=== PATIENT | male | born 1960 | race Caucasian/White ===

== ENCOUNTER 2020-01-23 11:58 | Inpatient (IN) | payer MEDICAID, OTHER ==
[~2020-01-23] VITALS: Ht 167.6 cm; Wt 54.9 kg
[2020-01-23 13:08] LABS: HEMATOCRIT. 46.1 % (42.0-52.0); HEMOGLOBIN. 15.8 g/dL (14.0-18.0); MEAN CORPUSCULAR HEMOGLOBIN 32.1 pg (28.0-32.0); MEAN CORPUSCULAR VOLUME 94.1 fL (80.0-94.0); PLATELET 176 x1000/uL (130-400); RED CELL DISTRIBUTION WIDTH 13.8 % (11.6-14.6)
[2020-01-23] MEDS ORDERED: AZITHROMYCIN 500 MG TABLET PO ONE (13:15)
[2020-01-23] MEDS ORDERED: CEFTRIAXONE 1 G PREMIX 50 ML IV ONE (13:15)
[2020-01-23 13:18] LABS: CHLORIDE 108 mEq/L (98-107)
[2020-01-23 13:22] LABS: PLATELET ESTIMATE NORMAL
[2020-01-23 14:19] LABS: CLARITY URINE CLEAR (CLEAR); COLOR URINE YELLOW (YELLOW); KETONES URINE NEGATIVE (NEGATIVE); LEUKOCYTE ESTERASE URINE NEGATIVE (NEGATIVE); NITRITE URINE NEGATIVE (NEGATIVE); OCCULT BLOOD URINE 1+ (NEGATIVE); PROTEIN URINE 2+ (NEGATIVE)
[2020-01-23] MEDS ORDERED: IOHEXOL-350 100 ML BOTTLE ONE (19:25)
[2020-01-23] MEDS ORDERED: AZITHROMYCIN 500 MG in DEXT 5% WATER 250 ML IV SCH (23:00)
[2020-01-23] MEDS ORDERED: ACETAMINOPHEN 325MG TABLET PO PRN (23:00)
[2020-01-23] MEDS ORDERED: HYDROCODONE/ACETAMINOPHEN 5/325MG TABLET PO PRN (23:00)
[2020-01-23] MEDS ORDERED: CEFTRIAXONE 1 G PREMIX 50 ML IV SCH (23:00)
[2020-01-23] MEDS ORDERED: GUAIFENESIN 200MG/10ML SUGAR FREE UDC PO PRN (23:00)
[2020-01-23] MEDS ORDERED: ONDANSETRON HCL 4MG/2ML INJ IV PRN (23:00)
[2020-01-23] MEDS ORDERED: MORPHINE SULFATE 2 MG/ML CPJ (NOT FOR IM USE) IV PRN (23:00)
[2020-01-23] MEDS ORDERED: IPRATROPIUM/ALBUTEROL 0.5-3(2.5)MG/3ML NEB NEB PRN (23:00)
[2020-01-23] MEDS ORDERED: LORAZEPAM 2MG/ML CPJ IV PRN (23:00)
[2020-01-24] VITALS: BP 143/72
[2020-01-24 00:55] VITALS: BP 143/72
[2020-01-24 04:00] VITALS: BP 137/79
[2020-01-24] MEDS ORDERED: MVI, ADULT NO.1 10 ML, FOLIC ACID 1 MG, THIAMINE HCL 100 MG in SODIUM CHLORIDE 0.9% 1,0... IV NR ×4 (04:00)
[2020-01-24] MEDS ORDERED: METHYLPREDNISOLONE SOD SUCC 125 MG/2 ML VIAL IV SCH (06:00)
[2020-01-24 07:28] LABS: BASOPHILS % 0.2 % (0.0-2.0); CHLORIDE 106 mEq/L (98-107); EOSINOPHILS % 0.4 % (0.0-5.0); HEMATOCRIT. 44.6 % (42.0-52.0); HEMOGLOBIN. 15.1 g/dL (14.0-18.0); LYMPHOCYTES % 10.1 % (20.0-50.0); MEAN CORPUSCULAR HEMOGLOBIN 32.2 pg (28.0-32.0); MEAN CORPUSCULAR VOLUME 95.1 fL (80.0-94.0); MEAN PLATELET VOLUME 8.2 fl (7.4-10.4); MONOCYTES % 5.6 % (2.0-8.0); NEUTROPHILS % 83.7 % (40.0-76.0); PLATELET 141 x1000/uL (130-400); RED BLOOD CELL COUNT 4.69 mill/uL (4.7-6.1); RED CELL DISTRIBUTION WIDTH 13.8 % (11.6-14.6)
[2020-01-24 07:54] LABS: CREATINE KINASE MB FRACTION 19.1 ng/mL (0.5-3.6)
[2020-01-24 08:00] VITALS: BP 143/65
[2020-01-24 08:05] LABS: CREATINE KINASE 3565 IU/L (39-308)
[2020-01-24] MEDS ORDERED: FOLIC ACID 1MG TABLET PO SCH (09:00)
[2020-01-24] MEDS: ENOXAPARIN 40MG/0.4ML SYR SUBCUT SCH ×2 (09:00→09:58)
[2020-01-24] MEDS ORDERED: ALBUTEROL 6.7GM HFA INHALER ORI PRN (09:45)
[2020-01-24 10:44] LABS: CANNABINOID URINE SCREEN NEGATIVE (NEGATIVE)
[2020-01-24 10:45] LABS: *AMPHETAMINES SCREEN URINE NEGATIVE (NEGATIVE); *BARBITURATES SCREEN URINE NEGATIVE (NEGATIVE); *BENZODIAZEPINES SCREEN URINE NEGATIVE (NEGATIVE); *COCAINE SCREEN URINE NEGATIVE (NEGATIVE); METHADONE URINE SCREEN NEGATIVE (NEGATIVE); OPIATES URINE SCREEN NEGATIVE (NEGATIVE)
[2020-01-24 10:47] LABS: PHENCYCLIDINE URINE SCREEN NEGATIVE (NEGATIVE)
[2020-01-24] MEDS: CEFTRIAXONE 1 G PREMIX 50 ML IV SCH (12:30)
[2020-01-24] MEDS: AZITHROMYCIN 500 MG in DEXT 5% WATER 250 ML IV SCH (13:18)
[2020-01-24] MEDS ORDERED: NON FORMULARY PATIENT HOME MED XX SCH (15:00)
[2020-01-24] MEDS: ALBUTEROL 6.7GM HFA INHALER ORI SCH ×2 (17:07→23:29)
[2020-01-24] MEDS: FLUTICASONE FUROATE 100 1 INH/CAP ORI SCH (17:07)
[2020-01-24 20:00] VITALS: BP 136/65
[2020-01-24] MEDS: GUAIFENESIN 600MG ER TABLET PO SCH ×2 (20:18→20:35)
[2020-01-25] VITALS (7 sets, daily range): BP systolic 111–132; BP diastolic 53–75
[2020-01-25 01:03] LABS: D-DIMER 2.06 mg/L FEU (<0.50); INR 1.1; PARTIAL THROMBOPLASTIN TIME 28.8 sec (23.4-31.0); PROTHROMBIN TIME 11.6 sec (9.6-11.0)
[2020-01-25 01:09] LABS: CREATINE KINASE MB FRACTION 9.2 ng/mL (0.5-3.6)
[2020-01-25 01:15] LABS: CARCINO EMBRYONIC ANTIGEN 5.5 ng/ml; FERRITIN 152 ng/mL (22-322); PROSTRATE SPECIFIC AG TOTAL 1.09 ng/mL (0.0-4.0)
[2020-01-25 01:27] LABS: HEPATITIS B SURFACE ANTIGEN NEGATIVE
[2020-01-25 01:31] LABS: CREATINE KINASE 2188 IU/L (39-308)
[2020-01-25 01:56] LABS: HEPATITIS A AB IGM NEGATIVE (NEGATIVE)
[2020-01-25] MEDS: ALBUTEROL 6.7GM HFA INHALER ORI SCH ×4 (04:32→23:17)
[2020-01-25 08:19] LABS: CREATINE KINASE 1523 IU/L (39-308)
[2020-01-25] MEDS: GUAIFENESIN 600MG ER TABLET PO SCH ×2 (08:37→20:31)
[2020-01-25] MEDS: FLUTICASONE FUROATE 100 1 INH/CAP ORI SCH ×2 (08:37→18:18)
[2020-01-25] MEDS: FOLIC ACID 1MG TABLET PO SCH (08:37)
[2020-01-25] MEDS: ENOXAPARIN 40MG/0.4ML SYR SUBCUT SCH (08:38)
[2020-01-25] MEDS: CEFTRIAXONE 1 G PREMIX 50 ML IV SCH (13:07)
[2020-01-25] MEDS: AZITHROMYCIN 500 MG in DEXT 5% WATER 250 ML IV SCH (18:18)
[2020-01-25] MEDS ORDERED: DOXYCYCLINE 100 MG in DEXT 5% WATER 100 ML IV SCH (19:15)
[2020-01-25] MEDS: DOXYCYCLINE HYCLATE 100MG CAPSULE PO SCH (20:31)
[2020-01-26 04:00] VITALS: BP 122/70
[2020-01-26 05:09] LABS: HIV SCREEN 4G Non Reactive (Non Reactive)
[2020-01-26] MEDS: ALBUTEROL 6.7GM HFA INHALER ORI SCH ×3 (06:47→16:21)
[2020-01-26 08:30] VITALS: BP 119/54
[2020-01-26] MEDS: ENOXAPARIN 40MG/0.4ML SYR SUBCUT SCH (09:21)
[2020-01-26] MEDS: DOXYCYCLINE HYCLATE 100MG CAPSULE PO SCH ×2 (09:21→20:52)
[2020-01-26] MEDS: GUAIFENESIN 600MG ER TABLET PO SCH ×2 (09:21→20:52)
[2020-01-26] MEDS: FOLIC ACID 1MG TABLET PO SCH (09:21)
[2020-01-26] MEDS: FLUTICASONE FUROATE 100 1 INH/CAP ORI SCH ×2 (09:59→16:21)
[2020-01-26 10:16] VITALS: BP 119/54
[2020-01-26 12:30] VITALS: BP 129/54
[2020-01-26] MEDS: CEFTRIAXONE 1 G PREMIX 50 ML IV SCH (14:31)
[2020-01-26 16:08] VITALS: BP 136/64
[2020-01-26 17:40] LABS: BASOPHILS % 0.5 % (0.0-2.0); EOSINOPHILS % 2.6 % (0.0-5.0); HEMATOCRIT. 47.3 % (42.0-52.0); HEMOGLOBIN. 16.3 g/dL (14.0-18.0); LYMPHOCYTES % 29.2 % (20.0-50.0); MEAN CORPUSCULAR HEMOGLOBIN 32.2 pg (28.0-32.0); MEAN CORPUSCULAR VOLUME 93.7 fL (80.0-94.0); MEAN PLATELET VOLUME 8.5 fl (7.4-10.4); MONOCYTES % 7.6 % (2.0-8.0); NEUTROPHILS % 60.1 % (40.0-76.0); PLATELET 180 x1000/uL (130-400); RED BLOOD CELL COUNT 5.04 mill/uL (4.7-6.1); RED CELL DISTRIBUTION WIDTH 13.5 % (11.6-14.6)
[2020-01-26 17:50] LABS: CHLORIDE 110 mEq/L (98-107)
[2020-01-26 20:00] VITALS: BP 138/62
[2020-01-27] VITALS: BP 133/55
[2020-01-27] MEDS: ALBUTEROL 6.7GM HFA INHALER ORI SCH ×5 (00:23→22:22)
[2020-01-27 04:00] VITALS: BP 118/59
[2020-01-27 08:00] VITALS: BP 127/62
[2020-01-27] MEDS: DOXYCYCLINE HYCLATE 100MG CAPSULE PO SCH ×2 (08:16→20:39)
[2020-01-27] MEDS: FOLIC ACID 1MG TABLET PO SCH (08:16)
[2020-01-27] MEDS: ENOXAPARIN 40MG/0.4ML SYR SUBCUT SCH (08:16)
[2020-01-27] MEDS: GUAIFENESIN 600MG ER TABLET PO SCH ×2 (08:17→20:38)
[2020-01-27] MEDS: FLUTICASONE FUROATE 100 1 INH/CAP ORI SCH ×2 (08:27→16:55)
[2020-01-27 12:00] VITALS: BP 108/62
[2020-01-27] MEDS: CEFTRIAXONE 1 G PREMIX 50 ML IV SCH (14:15)
[2020-01-27 16:00] VITALS: BP 129/57
[2020-01-27 20:00] VITALS: BP 123/57
[2020-01-28] VITALS: BP 123/63
[2020-01-28] MEDS: ALBUTEROL 6.7GM HFA INHALER ORI SCH ×4 (04:50→23:57)
[2020-01-28 04:51] VITALS: BP 109/56
[2020-01-28 08:00] VITALS: BP 111/63
[2020-01-28] MEDS: DOXYCYCLINE HYCLATE 100MG CAPSULE PO SCH ×2 (08:49→21:17)
[2020-01-28] MEDS: GUAIFENESIN 600MG ER TABLET PO SCH ×2 (08:49→21:17)
[2020-01-28] MEDS: FOLIC ACID 1MG TABLET PO SCH (08:49)
[2020-01-28] MEDS: FLUTICASONE FUROATE 100 1 INH/CAP ORI SCH ×2 (08:50→19:15)
[2020-01-28] MEDS: ENOXAPARIN 40MG/0.4ML SYR SUBCUT SCH (08:53)
[2020-01-28 12:00] VITALS: BP 123/63
[2020-01-28] MEDS: CEFTRIAXONE 1 G PREMIX 50 ML IV SCH (12:34)
[2020-01-28 16:00] VITALS: BP 101/59
[2020-01-28 22:12] VITALS: BP 121/57
[2020-01-29] VITALS: BP 112/64
[2020-01-29 04:00] VITALS: BP 121/40
[2020-01-29] MEDS: ALBUTEROL 6.7GM HFA INHALER ORI SCH ×3 (05:14→17:19)
[2020-01-29 08:00] VITALS: BP 112/55
[2020-01-29] MEDS: GUAIFENESIN 600MG ER TABLET PO SCH ×2 (09:17→20:53)
[2020-01-29] MEDS: DOXYCYCLINE HYCLATE 100MG CAPSULE PO SCH ×2 (09:17→20:53)
[2020-01-29] MEDS: ENOXAPARIN 40MG/0.4ML SYR SUBCUT SCH (09:17)
[2020-01-29] MEDS: FOLIC ACID 1MG TABLET PO SCH (09:17)
[2020-01-29] MEDS: FLUTICASONE FUROATE 100 1 INH/CAP ORI SCH ×2 (09:17→17:19)
[2020-01-29 12:00] VITALS: BP 112/62
[2020-01-29] MEDS: CEFTRIAXONE 1 G PREMIX 50 ML IV SCH (13:05)
[2020-01-29 16:00] VITALS: BP 156/62
[2020-01-29 20:00] VITALS: BP 140/50
[2020-01-30] VITALS: BP 109/63
[2020-01-30 04:00] VITALS: BP 135/63
[2020-01-30] MEDS: ALBUTEROL 6.7GM HFA INHALER ORI SCH ×2 (05:00→10:28)
[2020-01-30] MEDS: FLUTICASONE FUROATE 100 1 INH/CAP ORI SCH (08:20)
[2020-01-30] MEDS: GUAIFENESIN 600MG ER TABLET PO SCH (08:27)
[2020-01-30] MEDS: ENOXAPARIN 40MG/0.4ML SYR SUBCUT SCH (08:27)
[2020-01-30] MEDS: FOLIC ACID 1MG TABLET PO SCH (08:27)
[2020-01-30] MEDS: DOXYCYCLINE HYCLATE 100MG CAPSULE PO SCH (08:27)
[2020-01-30 08:30] VITALS: BP_SYST 102; BP_SYST 131; BP_DIAS 54; BP_DIAS 72
[2020-01-30] MEDS ORDERED: FLUT1DIS3 INH (10:17)
[2020-01-30] MEDS ORDERED: ALBU18HF2 IH (10:17)
[2020-01-30 12:26] VITALS: BP 122/73
== END 2020-01-30 14:08 | disposition home or self-care (01) | DRG 720 ==
LOC: ER 12:22 → 7EST 15:00 → EDBEDREQTM 15:07 → EDBEDREQ 15:07 → CANRESERV 20:36 → ENRESERV 20:36 → SUPCPDRO 22:46 → EDBEDREQ 23:31 → ENRESERV 23:35 → 7EST 01-25 03:00 → 5WST 01-25 14:15
PROVIDERS: ADMIT Internal Medicine Nephrology; ATTEND Internal Medicine Nephrology
DX: A41.9 Sepsis, unspecified organism (principal); J96.01 Acute respiratory failure with hypoxia; J18.9 Pneumonia, unspecified organism; E87.8 Other disorders of electrolyte and fluid balance, not elsewhere classified; J84.10 Pulmonary fibrosis, unspecified; J47.0 Bronchiectasis with acute lower respiratory infection; M62.82 Rhabdomyolysis; J43.9 Emphysema, unspecified; R74.0 Nonspecific elevation of levels of transaminase and lactic acid dehydrogenase [LDH]; I10 Essential (primary) hypertension; F17.210 Nicotine dependence, cigarettes, uncomplicated; D72.810 Lymphocytopenia; Z59.0 Homelessness; Z03.818 Encounter for observation for suspected exposure to other biological agents ruled out
CPT/HCPCS: 36415; 71045; 71275; 80048; 80053; 80305; 81003; 82105; 82378; 82550; 82553; 82728; 83605; 83615; 83735; 83880; 84100; 84145; 84153; 84484; 85025; 85379; 86140; 86606; 86635; 86705; 86709; 86803; 87070; 87116; 87340; 87389; 93005; 96365; 99285; J0456; J0696; J1650; J2930; J3411; J3490; J7030; J7060; Q9967; G0103; U0003-CS